=== PATIENT | male | born 1950 | race Caucasian/White ===

== ENCOUNTER 2017-01-13 07:00 | Day surgery (SDC) | payer MEDICARE, OTHER ==
[2017-01-13] MEDS ORDERED: GLYCOPYRROLATE INJ 0.4 MG/2 ML VIAL ONE (07:11)
[2017-01-13] MEDS ORDERED: ONDANSETRON HCL INJ/PF 4 MG/2 ML SDV ONE ×2 (07:11→07:34)
[2017-01-13] MEDS ORDERED: NALOXONE HCL INJ/PF 0.4 MG/1 ML SDV ONE (07:11)
[2017-01-13] MEDS ORDERED: FLUMAZENIL INJ 0.5 MG/5 ML VIAL ONE (07:12)
[2017-01-13] MEDS ORDERED: FENTANYL CITRATE INJ/PF 100 MCG/2 ML AMPUL ONE (07:12)
[2017-01-13] MEDS ORDERED: EPINEPHRINE INJ 1 MG/10 ML DISP.SYRIN ONE (07:12)
[2017-01-13] MEDS ORDERED: GLUCAGON,HUMAN RECOMB 1 MG INJ ONE (07:13)
[2017-01-13] MEDS: MIDAZOLAM 2 MG/2 ML INJ ONE ×4 (07:39→08:21)
--- NOTE | 2017-01-13 08:42 | PDOC DISCHARGE SUMMARY ---
Discharge Summary (SDC) - Discharge Final Diagnosis: 1. GAstric polyps 2. Chronic distal esophagitis 3. Diverticuloses Date of Surgery: 01/13/17 Discharge Date: 01/13/17 Condition: Good Treatment or Instructions: [address] [id number] POST ENDOSCOPY DISCHARGE INSTRUCTIONS 1. Diet: Start clear liquids that a regular diet as tolerated. 2. Resume all preoperative medications. All oral anticoagulants and aspirins can be resumed 24 hours after procedure. 3. If a polypectomy was performed some bleeding per rectum may occur. This should stop within 3 days. If not, please contact the office. 4. If you had a colonoscopy you may experience some bloating and delayed return of normal bowel function for several days, your regular bowel movement pattern should resume within a week. 5. Please contact [facility] at to make an appointment with Dr. Krishna for 1 to 3 weeks following procedure. 6. If you have any questions or concerns regarding your care,treatment plan or follow up, please contact our office. 7. Per clinical guidelines we recommend you undergo a repeat colonoscopy in 5- 7 years. Referrals: LOCALMD,NO [Primary Care Provider] - Discharge Diet: As Tolerated Discharge Activity: Activity As Tolerated Home Care Assistance: None Needed Report the Following to Your Physician Immediately: Shortness of Breath, Increase in Pain, Fever over 101 Degrees
--- NOTE | 2017-01-13 09:32 | OPERATIVE REPORT E ---
Operative Report NAME: RADHIKA BARRERA : 1950 AGE: 66Y DATE OF SURGERY: 01/13/2017 ROOM: PREOPERATIVE DIAGNOSES: 1. Personal history of colon polyp, tubular adenoma. 2. History of Chavez esophagus short segment. POSTOPERATIVE DIAGNOSES: 1. Chronic esophagitis. 2. Multiple gastric polyps. 3. Colonic diverticula. 4. Grade 1 esophageal varices. PROCEDURE: 1. Esophagogastroduodenoscopy. 2. Gastric polypectomy x3. 3. Cold forceps biopsy of distal esophagus. 4. Total colonoscopy to the cecum with photodocumentation. SURGEON: TANO BACON M.D. ANESTHESIA: Conscious sedation. COMPLICATIONS: None. ESTIMATED BLOOD LOSS: Minimal. DRAINS: None. TISSUE REMOVED: Gastric polypectomy x3 and esophageal biopsy. FINDINGS: See below. SUMMARY OF PROCEDURE: Patient was brought from the holding area to the main endoscopy suite where IV sedation was induced. Patient was placed in left lateral decubitus position semirecumbent, oral mouthpiece inserted and monitoring devices attached. Appropriate level of conscious sedation induced pharmacologically. Surgical plan and surgical time out were conducted. The flexible adult upper endoscope was advanced through the patient's hypopharynx, down to the esophagus, into the stomach and into the duodenum. The duodenum was normal. The scope was brought back through the pylorus which was unremarkable and the lining of the stomach appeared grossly normal, no evidence of tumor, stricture or retained gastric contents. In the proximal gastric fundus along the greater curvature were 3 polyps that were pedunculated, 1 moderate sized, 2 smaller. All 3 polyps were removed using the hot snare device on medium strength and all 3 specimens were retained. Bleeding was negligible. Scope was retroflexed and only a mild esophageal hiatal hernia was identified. Scope was brought back through the GE junction which was approximately 36 cm from the incisors. The Z line was irregular with patchy areas of gastric mucosa. Photos were taken and 2 cold forceps biopsies were taken at opposite sides of the GE junction. Bleeding was minimal. Specimen was sent to pathology as distal esophageal biopsies. The irregularity was confined to a segment approximately 3 cm in length involving the distal esophagus. There was no evidence of bleeding, stricture or erosion. All the findings appeared chronic. The rest of the esophagus was unremarkable except for grade 1 esophageal varices. There were approximately 3 varices identified and photographed. There was no other pathology in the esophagus. Scope was withdrawn through the patient's oropharynx. He tolerated the procedure well. Part B of the operation was then undertaken. The patient was repositioned and placed in the extreme left lateral decubitus position. We conducted a rectal exam which revealed some collapsed external hemorrhoids and some irregularity of the anal opening commensurate with previous anal surgery. The patient had previously undergone fistulotomy with seton placement. Rectal exam revealed no other pathology. The posterior surface of the prostate gland was smooth. The flexible adult colonoscope was advanced through the anorectal canal all the way to the cecum. This was an excellent study, well-prepped bowel. Transillumination of the anterior abdominal wall and visualization of cecal anatomy confirmed cecal intubation. The appendiceal orifice and the ileocecal valve were appreciated. The scope was withdrawn through the length of the colon, checking mucosa carefully. There was no evidence of tumor, stricture, bleeding or polyp. There was scattered diverticulosis on the right and left sides of the colon. The scope was withdrawn from the patient's anus. He tolerated the procedure well. There were no complications. Per surveillance guidelines, given the patient's history of tubular adenoma of the rectum removed 4 years ago, the patient would be an appropriate candidate for follow-up colonoscopy in 5 to 7 years. DICTATING PHYSICIAN: TANO BACON M.D. [id number] [facility]#: [id number] ID: [id number] JOB#: [id number] ACCT: [id number] cc:TANO BACON M.D. >
[2017-01-13 10:19] VITALS: BP 131/86
== END 2017-01-13 09:43 | disposition home or self-care (01) ==
LOC: END 07:00
PROVIDERS: ATTEND Surgery
PROC: 0DB68ZX Excision of Stomach, Via Natural or Artificial Opening Endoscopic, Diagnostic (ICD-10-PCS; principal; 2017-01-13 07:30)
PROC: 0DB58ZX Excision of Esophagus, Via Natural or Artificial Opening Endoscopic, Diagnostic (ICD-10-PCS; 2017-01-13 07:30)
DX: K31.7 Polyp of stomach and duodenum (principal); K21.0 Gastro-esophageal reflux disease with esophagitis; K57.30 Diverticulosis of large intestine without perforation or abscess without bleeding; I85.00 Esophageal varices without bleeding; Z86.010 Personal history of colon polyps; Z87.19 Personal history of other diseases of the digestive system; I10 Essential (primary) hypertension; F17.220 Nicotine dependence, chewing tobacco, uncomplicated; Z96.649 Presence of unspecified artificial hip joint; Z79.899 Other long term (current) drug therapy
CPT/HCPCS: 43251; 45378; 88305 ×2; J2250; J3010; J2405; 43239; J0171; J1610; J2310; J3490